=== PATIENT | female | born 1990 | race Caucasian/White ===

== ENCOUNTER 2018-11-19 04:18 | Emergency (ER) | payer OTHER ==
[2018-11-19 05:00] LABS: #Eosinphils 0.1 thou/uL (0.0-0.7); #Monocytes 0.5 thou/uL (0.11-0.59); #Neutrophils 3.4 thou/uL (1.40-6.50); %Basophils 0.3 % (0.0-1.0); %Eosinophils 1.1 % (0.0-10.0); %Lymphocytes 33.7 % (21.0-51.0); %Monocytes 7.7 % (0.0-10.0); %Neutrophils 57.1 % (42.0-75.0); Hemoglobin 11.3 g/dL (12.0-16.0); Mean Corpuscular HGB CONC 35.4 g/dL (32.0-36.0); Mean Corpuscular Volume 90.4 fL (78.0-98.0); Mean Platelet Volume 8.5 fL (7.4-10.4); Platelet Count 145 thou/uL (130-400); RBC Distribution Width 12.3 % (11.5-14.5); Red Blood Cell (RBC) Count 3.54 mill/uL (4.20-5.40)
[2018-11-19 05:39] LABS: Bilirubin Negative (Negative); Blood, Urine 2+ (Negative); Clarity Clear (Clear); Glucose, Urine (Dipstick) Normal (Negative); Leukocyte 75 Leu/uL (Negative); Nitrite Negative (Negative); Protein, Urine (Dipstick) Negative (Neg-Trace); Squamous Epithelial 0-3 HPF (0-3); Urobilinogen Normal mg/dL (Less than 2)
[2018-11-19 05:52] LABS: Bacteria/HPF 1+ HPF (None Seen)
--- NOTE | 2018-11-19 08:00 | ULT ---
TRANSVAGINAL ULTRASOUND: INDICATION: First-trimester with a history of vaginal bleeding and . COMPARISON: None. FINDINGS: A single live intrauterine gestation in breech presentation. The placenta is posterior in location. The placenta is 1.5 cm from the level of the cervical os and is slightly low-lying. The cervical le ngth is 3.3 cm. There are some hypoechoic regions within the anterior superior aspect of the placent a which may reflect tiny small placental lakes. There is no evidence of subchorionic hemorrhage. AF I appears within normal limits. The biparietal diameter is 3.28 cm giving an estimated gestational age of 16 weeks and 1 day (57th pe rcentile). Head circumference measured 12.45 cm giving an estimated gestational age of 16 weeks and 2 days (50th percentile). The abdominal circumference measured 10.28 cm giving an estimated gestational age of 16 weeks and 2 d ays (64th percentile). The femoral length measured 1.95 cm giving an estimated gestational age of 15 weeks and 6 days (37th percentile). The estimated weight is 144 gm +/- 21 g (46th percentile). Average gestational age by ultrasound is 16 weeks and 1 day with an estimated due date 05/05/2019. Th e estimated clinical age is 16 weeks and 0 days with estimated due date 05/06/2019. Cardiac activity was measured at 158 b.p.m. Uterine length was 11.36 cm. survey was limited d ue to gestational age. IMPRESSION: 1. Single viable intrauterine gestation with size and dates as above. 2. Posterior placenta is slightly low-lying. A followup obstetrical ultrasound in 2-3 weeks with a survey is recommended. POS: IVETTE
== END 2018-11-19 06:04 | disposition home or self-care (01) ==
LOC: ERS 04:18
DX: O20.9 Hemorrhage in early pregnancy, unspecified (principal); O23.42 Unspecified infection of urinary tract in pregnancy, second trimester; Z3A.16 16 weeks gestation of pregnancy
CPT/HCPCS: 36415; 76856; 81003; 81015; 85025; 86900; 86901; 93976

== ENCOUNTER 2019-04-29 04:26 | Inpatient (IN) | payer OTHER ==
[2019-04-29 05:36] VITALS: BMI 22.9
[2019-04-29] MEDS ORDERED: Promethazine HCl 25 MG/ML VIAL IM PRN ×3 (05:39→12:06)
[2019-04-29] MEDS ORDERED: Acetaminophen 500 MG TAB PO PRN (05:39)
[2019-04-29] MEDS ORDERED: hydrALAZINE 20 MG/ML VIAL SLOW IVP PRN ×2 (05:39→12:06)
[2019-04-29] MEDS ORDERED: Ondansetron PF 4 MG/2 ML Vial IVP PRN ×3 (05:39→12:06)
[2019-04-29] MEDS ORDERED: Butorphanol Tartrate 1 MG/ML VIAL SLOW IVP PRN (05:39)
[2019-04-29] MEDS ORDERED: NS / Oxytocin 40 units/1000ml 1,000 ML IV SCH ×2 (05:45→12:06)
[2019-04-29] MEDS ORDERED: NS w/ Oxytocin 10 units 500 ML IV SCH ×2 (05:45)
[2019-04-29] MEDS ORDERED: Lidocaine 1% (PF) 30 ML VIAL SC PRN (05:45)
[2019-04-29] MEDS ORDERED: Ibuprofen 800 MG TAB PO PRN (05:45)
[2019-04-29] MEDS ORDERED: Misoprostol 200 MCG TAB RC PRN (05:45)
[2019-04-29] MEDS ORDERED: Methylergonovine 0.2 MG/ML VIAL IM PRN (05:45)
[2019-04-29] MEDS ORDERED: Carboprost 250 MCG/ML AMP IM PRN (05:45)
[2019-04-29] MEDS: Lactated Ringer's 1,000 ML IV SCH ×2 (05:59→09:26)
[2019-04-29] MEDS ORDERED: Penicillin G Potassium 5 MILL.UNITS in Sodium Chloride 0.9% 100 ML IVPB SCH (06:00)
[2019-04-29 06:07] LABS: Hemoglobin 10.2 g/dL (12.0-16.0); Mean Corpuscular HGB CONC 33.5 g/dL (32.0-36.0); Mean Corpuscular Hemoglobin 30.8 pg (27.0-31.0); Mean Corpuscular Volume 92.1 fL (78.0-98.0); Mean Platelet Volume 9.8 fL (7.4-10.4); Platelet Count 122 thou/uL (130-400); RBC Distribution Width 11.5 % (11.5-14.5); Red Blood Cell (RBC) Count 3.31 mill/uL (4.20-5.40); White Blood Cell (WBC) Count 6.3 thou/uL (4.8-10.8)
[2019-04-29 06:45] LABS: HBSAg Index 0.28 S/CO (0-0.99); Hep B Surf Ag Non-Reactive S/CO (NonReactive); Syphilis Antibody Nonreactive (Nonreactive); Syphilis Antibody Index 0.05 S/CO (<1.00 Non-Reactive)
[2019-04-29] MEDS ORDERED: Fentanyl 4 mcg/Bup 0.1% Cadd 100 ML ONE (08:40)
[2019-04-29] MEDS ORDERED: Fentanyl 100 MCG/2 ML VIAL ONE (09:02)
[2019-04-29] MEDS ORDERED: Bupivacaine 0.5% 10 ML VIAL ONE (09:02)
[2019-04-29] MEDS ORDERED: Penicillin G 2.5 MILL.units 50 ML IVPB SCH (10:00)
--- NOTE | 2019-04-29 10:37 | PDOC.LDPN ---
Labor & Delivery Progress Note - Subjective Subjective: comfortable (requesting epidural after AROM performed) - Objective Vital signs reviewed and normal: yes General: NAD, resting Uterine fundus: non tender Dilation: 3-4cm Effacement: 75% Station: 0 FHT: category 1 Bon[place]arte contractions every: 2-4 min AROM: clear fluid - Assessment (1) Normal labor Code(s): O80 - ENCOUNTER FOR FULL-TERM UNCOMPLICATED DELIVERY; Z37.9 - OUTCOME OF DELIVERY, UNSPECIFIED Current Visit: Yes Status: Acute Plan: continue plan of care, labor augmentation (calling for epidural)
[2019-04-29] MEDS ORDERED: Acetaminophen 325 MG TAB PO PRN (10:57)
[2019-04-29] MEDS ORDERED: Lactated Ringer's 500 ML IV PRN (10:57)
[2019-04-29] MEDS ORDERED: Naloxone HCl 0.4 mg/ml Vial IVP PRN ×2 (10:57)
[2019-04-29] MEDS ORDERED: Bupivacaine 0.25% 10 ML VIAL EPIDURAL ONE (10:57)
[2019-04-29] MEDS ORDERED: diphenhydrAMINE 50 MG/ML VIAL IVP PRN (10:57)
[2019-04-29] MEDS ORDERED: Fentanyl 100 MCG/2 ML VIAL I-THECAL ONE (10:57)
[2019-04-29] MEDS ORDERED: EPHEDRINE 25 MG/5 ML SYRINGE SLOW IVP PRN (10:57)
[2019-04-29] MEDS ORDERED: Fentanyl 4 mcg/Bupivacaine 0.1% Cassette 100 ML EPIDURAL SCH (11:00)
[2019-04-29] MEDS ORDERED: Communication Order-Pharmacy FS SCH (11:00)
--- NOTE | 2019-04-29 12:04 | PDOC.OPDEL ---
OB Operative/Delivery Note Delivery Dr/Surgeon: Marilyn Pre-Delivery Diagnosis: active labor, elective induction Procedure/Post Delivery Dx: spontaneous vaginal delivery Weeks gestation: 39 () Anesthesia: epidural - Findings A - 1 min: 9 - 5 min: 9 - Additional Findings/Plan Placenta delivered: spontaneous Repaired Obstetrical Laceration: 1st degree (tight nucal cord reduced, vigorous crying bb) Estimated blood loss: 120cc, QBL Post delivery plan: routine recovery
[2019-04-29] MEDS ORDERED: HYDROcodone/Acetaminophen 5/325 mg Tablet PO PRN (12:06)
[2019-04-29] MEDS ORDERED: Misoprostol 200 MCG TAB VAG PRN (12:06)
[2019-04-29] MEDS ORDERED: Bisacodyl 10 MG SUPP PR PRN (12:06)
[2019-04-29] MEDS ORDERED: Lanolin Ointment 7 GM TUBE TOP PRN (12:06)
[2019-04-29] MEDS ORDERED: Milk Of Magnesia 30 ML UDCUP PO PRN (12:06)
[2019-04-29] MEDS ORDERED: Benzocaine-Menthol 82.5 ML CAN TOP PRN (12:06)
[2019-04-29 12:26] LABS: Hemoglobin 10.7 g/dL (12.0-16.0)
[2019-04-29] MEDS: Ibuprofen 800 MG TAB PO SCH ×2 (16:18→21:30)
[2019-04-29] MEDS: Ferrous Sulfate 325 MG TAB PO SCH (18:09)
[2019-04-29] MEDS: Docusate Calcium (SURFAK) 240 MG CAP PO SCH (21:30)
[2019-04-30] MEDS: Ibuprofen 800 MG TAB PO SCH ×2 (06:22→14:27)
[2019-04-30] MEDS: Docusate Calcium (SURFAK) 240 MG CAP PO SCH (08:25)
[2019-04-30] MEDS: Ferrous Sulfate 325 MG TAB PO SCH (08:27)
[2019-04-30] MEDS ORDERED: Prenatal Vitamin 1 TAB PO SCH (09:00)
[2019-04-30] MEDS ORDERED: Adacel (T-DAP) 0.5 ML SYRINGE IM ONE (09:00)
--- NOTE | 2019-04-30 10:47 | PDOC.PP ---
Post Progress Note Post Day #: 1 Subjective: Pt resting comfortably. Pain well controlled bleeding lightly. PO intake tolerated: yes Flatus: yes Ambulation: yes Vital Signs (12 hours) Temp Pulse Resp BP Pulse Ox 04/30/19 07:36 98.2 F 79 14 91/59 L 99 04/30/19 04:00 98 F 63 14 99/51 L 99 04/30/19 00:00 98.5 F 67 14 94/51 L 96 Weight Weight 160 lb - Physical Examination General: NAD Abdominal: lochia Fundus firm & at: umbiliacus, strongly RV Extremities: negative homans (B) (NT) Neurological: no gross focal deficits Psychiatric: A&Ox3, normal affect Result Diagrams: 04/29/19 12:18 Additional Labs: Post Labs Blood Type O POSITIVE 04/29/19 05:54 Hep Bs Antigen Non-Reactive S/CO (NonReactive) 04/29/19 05:54 (1) Normal labor Code(s): O80 - ENCOUNTER FOR FULL-TERM UNCOMPLICATED DELIVERY; Z37.9 - OUTCOME OF DELIVERY, UNSPECIFIED Status: Resolved (2) Anemia affecting Code(s): O99.019 - ANEMIA COMPLICATING , UNSPECIFIED TRIMESTER Status : Chronic Qualifiers: Trimester: unspecified trimester Qualified Code(s): O99.019 - Anemia complicating , unspecified trimester Comment: Taking PNV and Fe supp at home - Assessment/Plan S/P without cx during labor delivery and recovery. She has mild known chronic anemia of and is supplementing. Plan f/u PP 4-6 weeks or PRN any concerns.
[2019-04-30 11:32] VITALS: BP 95/53; TEMP 98.1
--- NOTE | 2019-05-02 15:03 | DIS ---
DATE OF ADMISSION: 04/29/2019 DATE OF DISCHARGE: 04/30/2019 ADMITTING DIAGNOSES: 1. Term intrauterine , 39 plus weeks. 2. Mild chronic anemia affecting . DISCHARGE DIAGNOSES: 1. Term intrauterine , 39 plus weeks. 2. Mild chronic anemia affecting . PROCEDURES: Include normal spontaneous vaginal delivery with primary laceration repair. HOSPITAL COURSE: The patient is admitted with a hemoglobin of 10.5 with a very favorable cervix at approximately 3 to 4 cm. She is Pitocin augmented with epidural analgesia given. The patient had a normal delivery, which was uncomplicated. Her recovery was uncomplicated as well, and she is discharged home on day #1. DISCHARGE INSTRUCTIONS: Include pelvic rest x6 weeks, no driving x2 weeks and she is to call or return to the emergency room for any heavy vaginal bleeding or concerns. She delivered a 7-pound baby boy without complication. Circumcision is done by the Nursery physician. Job ID: [id number]
== END 2019-04-30 15:25 | disposition home or self-care (01) | DRG 807 ==
LOC: L&D 04:26 → 3SE 15:48
PROVIDERS: ADMIT Obstetrics & Gynecology; ATTEND Obstetrics & Gynecology
PROC: 10E0XZZ Delivery of Products of Conception, External Approach (ICD-10-PCS; principal; 2019-04-29)
PROC: 10907ZC Drainage of Amniotic Fluid, Therapeutic from Products of Conception, Via Natural or Artificial Opening (ICD-10-PCS; 2019-04-29)
DX: O99.02 Anemia complicating childbirth (principal); Z37.0 Single live birth; D64.9 Anemia, unspecified; Z3A.39 39 weeks gestation of pregnancy; O70.0 First degree perineal laceration during delivery
CPT/HCPCS: 36415; 51702; 85027; 86780; 86850; 86900; 86901; 87340; 90715; J2590; J3010; J3490